=== PATIENT | female | born 1995 | race Caucasian/White ===

== ENCOUNTER → 2016-12-20 | Outpatient (CLI) | payer BC | LOC: M LAB 12:18 | PROVIDERS: ATTEND Specialist | DX: O20.0 Threatened abortion (principal); Z3A.00 Weeks of gestation of pregnancy not specified ==

== ENCOUNTER → 2016-12-22 | Outpatient (CLI) | payer BC | LOC: M LAB 12:08 | PROVIDERS: ATTEND Specialist | DX: O20.0 Threatened abortion (principal) ==

== ENCOUNTER → 2017-02-13 | Outpatient (CLI) | payer BC ==
[~2017-02-13] MED LIST: PREN200C PO
[2017-02-13 11:46] LABS: BASO % 0.4 % (0.0-1.0); EOS # 0.1 K/mm3 (0.0-0.50); EOS % 0.8 % (0.0-3.0); LARGE UNSTAINED CELL # 0.1 K/mm3 (0.0-0.4); LARGE UNSTAINED CELL % 1.6 % (0.0-4.0); LYMPH # 1.9 K/mm3 (1.5-6.5); LYMPH % 22.9 % (24.0-44.0); MEAN CORPUSCULAR HEMOGLOBIN 29.9 pg (27.0-33.0); MEAN CORPUSCULAR HGB CONC 33.9 g/dl (32.0-36.5); MEAN CORPUSCULAR VOLUME 88.2 fl (80.0-96.0); MONO # 0.4 K/mm3 (0.0-0.8); MONO % 4.9 % (0.0-5.0); NEUTROPHILS # 5.4 K/mm3 (1.8-7.7); NEUTROPHILS % 69.4 % (36.0-66.0); PLATELET COUNT, AUTOMATED 249 k/mm3 (150-450); RED CELL DISTRIBUTION WIDTH 12.7 % (11.5-14.5); WHITE BLOOD COUNT 7.8 K/mm3 (4.0-10.0)
[2017-02-13 12:52] LABS: HBsAg Prenatal NEGATIVE (NEGATIVE)
== END ==
LOC: M LAB 10:56
PROVIDERS: ATTEND Advanced Practice Midwife
DX: Z34.81 Encounter for supervision of other normal pregnancy, first trimester (principal)

== ENCOUNTER → 2017-02-17 | Outpatient (REF) | payer BC | LOC: M LAB REF 13:04 | PROVIDERS: ATTEND Advanced Practice Midwife | DX: Z34.81 Encounter for supervision of other normal pregnancy, first trimester (principal) ==

== ENCOUNTER 2017-04-22 22:13 | Emergency (ER) | payer BC, OTHER ==
[~2017-04-22] VITALS: Ht 170.2 cm; Wt 77.3 kg
[2017-04-22] MEDS ORDERED: PREN200C PO (22:26)
[2017-04-23 00:21] LABS: CONTROL LINE MONO INT CTR LINE PRESENT
[2017-04-23 00:25] VITALS: BP 110/78
== END 2017-04-23 00:30 | disposition home or self-care (01) ==
LOC: M ED 22:13
DX: O98.512 Other viral diseases complicating pregnancy, second trimester (principal); J02.9 Acute pharyngitis, unspecified; Z3A.17 17 weeks gestation of pregnancy; Z87.891 Personal history of nicotine dependence

== ENCOUNTER → 2017-05-04 | Outpatient (CLI) | payer OTHER ==
--- NOTE | 2017-05-05 08:19 | REP ---
Obstetric ultrasound for anatomy: There is a single intrauterine gestation in a breech presentation. There is motion and cardiac activity, the heart rate is 147 beats per minute. The placenta is posterior. There is no placenta previa or abruptio, the placenta is grade zero. Subjectively the amniotic fluid volume is normal. Cervix is 4.2 cm length. The maternal adnexa and cul-de-sac are unremarkable. By the ultrasound today the gestational age is 19 weeks 5 days with an MI of 09/23/2017. By LMP gestational age is 19 weeks 2 days. weight is 310 grams (0 pounds, 10 ounces). This is the 63rd percentile for 19 weeks 2 days. anatomic survey: The following structures are identified and are unremarkable. Intracranial lateral ventricles, cerebellum, cavum septum pellucidum, face, upper lip, cardiac right ventricular outflow tract, diaphragm, stomach, cord insertion, three-vessel cord, kidneys, bladder and upper lower extremities. Suboptimally demonstrated are the facial profile, lungs, four-chamber heart and left ventricular cardiac outflow tract and the spine. A followup study dedicated to these structures might be considered. There is a left choroid plexus cyst measuring 6 mm. The right choroid plexus is unremarkable. Signed by Damion Forrest MD 05/05/2017 08:06 A
== END ==
LOC: M RAD 16:57
PROVIDERS: ATTEND Specialist
DX: Z36 Encounter for antenatal screening of mother (principal)

== ENCOUNTER → 2017-06-01 | Outpatient (CLI) | payer OTHER ==
--- NOTE | 2017-06-02 05:05 | REP ---
Clinical: Anatomical evaluation. Comparison: 05/04/2017 . Findings: Examination demonstrates a single live intrauterine in breech presentation. motion is identified by technologist. Placenta is noted posteriorly and grade zero without evidence for placenta previa or abruption. Amniotic fluid volume is normal. Cervix measures 3.1 cm in length and appears closed. No evidence for nuchal cord. Gestational age by LMP 23 weeks 2 days with MI 09/26/2017 . Gestational age by current measurements 23 weeks 4 days with MI 09/24/2017 . FHR equals 144 beats per minute. Estimated weight 621 grams ( 57th percentile). Anatomical assessment demonstrates normal structures including cranium, choroid plexus, cavum, cerebellum/posterior fossa, facial features, lungs, four-chamber heart/ventricular outflow tracts, diaphragm, stomach, cord insertion/three-vessel cord, kidneys/bladder, and extremities. Continued limited evaluation of the lumbar spine noted. Impression: Single live intrauterine in breech presentation demonstrating appropriate interval growth. In conjunction with prior examination anatomical assessment is nearly complete and normal. Limited evaluation of the lumbar spine is again noted due to positioning. Signed by Natan Jones MD 06/02/2017 04:57 A
== END ==
LOC: M SMT 10:26
PROVIDERS: ATTEND Advanced Practice Midwife
DX: Z34.82 Encounter for supervision of other normal pregnancy, second trimester (principal); Z3A.23 23 weeks gestation of pregnancy

== ENCOUNTER → 2017-06-28 | Outpatient (CLI) | payer OTHER ==
[2017-06-28 13:11] LABS: MEAN CORPUSCULAR HEMOGLOBIN 29.3 pg (27.0-33.0); MEAN CORPUSCULAR HGB CONC 32.9 g/dl (32.0-36.5); PLATELET COUNT, AUTOMATED 239 10^3/uL (150-450); RED CELL DISTRIBUTION WIDTH 13.6 % (11.5-14.5); WHITE BLOOD COUNT 13.3 10^3/uL (4.0-10.0)
--- NOTE | 2017-06-28 13:17 | REP ---
Clinical: Anatomical re-evaluation. Comparison: 06/01/2017 . Findings: Examination demonstrates a single live intrauterine in cephalic presentation. motion is identified by technologist. Placenta is noted posteriorly and grade one without evidence for placenta previa or abruption. Amniotic fluid volume is normal. Cervix measures 4.1 cm in length and appears closed. No evidence for nuchal cord. Gestational age by LMP 27 weeks 1 day with MI 09/26/2017 . Gestational age by current measurements 27 weeks 3 days with MI 09/24/2017 . FHR equals 153 beats per minute. Estimated weight 1066 grams ( 49th percentile). Anatomical assessment demonstrates normal structures including cranium, choroid plexus, cavum, cerebellum/posterior fossa, facial features, lungs, four-chamber heart/ventricular outflow tracts, diaphragm, stomach, cord insertion/three-vessel cord, kidneys/bladder, spine, and extremities. Impression: Single live intrauterine in cephalic presentation demonstrating appropriate interval growth. In conjunction with prior examination anatomical assessment is complete and normal. No gross abnormalities are identified. Signed by Natan Jones MD 06/28/2017 11:17 A
== END ==
LOC: M SMT 10:01
PROVIDERS: ATTEND Obstetrics & Gynecology
DX: Z34.82 Encounter for supervision of other normal pregnancy, second trimester (principal)

== ENCOUNTER → 2017-08-29 | Outpatient (REF) | payer OTHER | LOC: M LAB REF 17:24 | DX: Z34.83 Encounter for supervision of other normal pregnancy, third trimester (principal) ==

== ENCOUNTER 2017-09-19 18:45 | Inpatient (IN) | payer OTHER ==
[2017-09-19] MEDS: miSOPROStol 50 MCG 1/2 TAB (S0191) SL (21:09)
[2017-09-19 21:16] LABS: HEMATOCRIT 38.6 % (36.0-47.0); HEMOGLOBIN 13.2 g/dl (12.0-16.0); MEAN CORPUSCULAR HEMOGLOBIN 29.9 pg (27.0-33.0); MEAN CORPUSCULAR HGB CONC 34.2 g/dl (32.0-36.5); MEAN CORPUSCULAR VOLUME 87.3 fl (80.0-96.0); PLATELET COUNT, AUTOMATED 214 10^3/uL (150-450); RED BLOOD COUNT 4.42 10^6/uL (4.00-5.40); RED CELL DISTRIBUTION WIDTH 14.6 % (11.5-14.5)
[2017-09-19 21:34] LABS: AMPHETAMINES URINE REFLEX NEGATIVE (NEGATIVE); BARBITURATES URINE REFLEX NEGATIVE (NEGATIVE); BENZODIAZEPINES URINE REFLEX NEGATIVE (NEGATIVE); CANNABINOIDS URINE REFLEX NEGATIVE (NEGATIVE); COCAINE METABOLITE URINE REFLE NEGATIVE (NEGATIVE); METHADONE URINE REFLEX NEGATIVE (NEGATIVE); OPIATES URINE REFLEX NEGATIVE (NEGATIVE); PHENCYCLIDINE URINE REFLEX NEGATIVE (NEGATIVE)
[2017-09-19 21:37] LABS: ALT/SGPT 18 U/L (12-78); AST/SGOT 31 U/L (7-37); BILIRUBIN,TOTAL 0.3 MG/DL (0.2-1.0); CREATININE FOR GFR 0.59 MG/DL (0.55-1.30); GLOMERULAR FILTRATION RATE > 60.0 (>60); LDH LACTATE DEHYDROGENASE 304 U/L (84-246); URIC ACID 5.6 MG/DL (2.6-6.0)
[2017-09-20] MEDS: miSOPROStol 50 MCG 1/2 TAB (S0191) SL ×3 (00:45→11:48)
[2017-09-20] MEDS: PROMETHAZINE INJ 25 MG/ML VIAL (J2550) IV (10:18)
[2017-09-20] MEDS: BUTORPHANOL 2 MG/ML INJ (J0595) IV (10:19)
[2017-09-20] MEDS ORDERED: FENTANYL 2MCG/ML ROPIVACAINE 0.2% IN 0.9% NACL 200ML IVBAG As Ordered (17:29)
[2017-09-20] MEDS ORDERED: EPIDURAL COMMENT XX (19:30)
[2017-09-20] MEDS ORDERED: EPIDURAL/PCA KEYS XX (19:30)
[2017-09-20] MEDS ORDERED: REFRIGERATOR IV KEYS XX (19:30)
[2017-09-20] MEDS ORDERED: LACTATED RINGER'S 1000 ML IV (19:30)
[2017-09-20] MEDS ORDERED: ONDANSETRON 4MG/2ML VIAL (J2405) IV ×2 (19:30→20:45)
[2017-09-20] MEDS ORDERED: diphenhydrAMINE INJ 50MG/ML VIAL (J1200) IV (19:30)
[2017-09-20] MEDS ORDERED: FENTANYL/ROPIVACAINE/NACL BAG 200 ML EPIDURAL (19:30)
[2017-09-20] MEDS ORDERED: ePHEDrine INJ 50 MG/ML VIAL IV (19:30)
[2017-09-20] MEDS ORDERED: NALOXONE INJ 0.4 MG/1 ML VIAL (J2310) IV (19:30)
[2017-09-20] MEDS ORDERED: OXYTOCIN 30 UNITS IN 0.9% NaCl 500ML IV BAG (J2590) As Ordered (19:31)
[2017-09-20] MEDS ORDERED: LR 1,000 ML IV (20:39)
[2017-09-20] MEDS: OXYTOCIN DRIP 30 UNITS in APPROPRIATE DILUENT 1 EA IV (20:39)
[2017-09-20] MEDS ORDERED: MEASLES,MUMPS,RUBELLA VACCINE INJ (MMR-II) (90707) SC (20:45)
[2017-09-20] MEDS ORDERED: PROMETHAZINE 25 MG TAB PO (20:45)
[2017-09-20] MEDS ORDERED: DOCUSATE SODIUM 100 MG CAP PO (20:45)
[2017-09-20] MEDS ORDERED: RHOGAM 300 MCG (1500 IU) INJ (J2790) IM (20:45)
[2017-09-20] MEDS: IBUPROFEN 800 MG TAB PO (22:04)
[2017-09-21] MEDS: ACETAMINOPHEN 500 MG TAB PO ×3 (04:31→20:51)
[2017-09-21] MEDS: DIBUCAINE 1% OINTMENT 30GM TOP (04:32)
[2017-09-21] MEDS: PRENATAL VITAMINS CHEWABLE TABLET PO (08:16)
[2017-09-21] MEDS: IBUPROFEN 800 MG TAB PO ×2 (08:17→18:01)
[2017-09-21] MEDS: ADACEL/BOOSTRIX VACCINE (DIPHTH/PERTUSS/ACELL/TETANUS)0.5ML SYR (90715) IM (13:05)
[2017-09-22] MEDS: PRENATAL VITAMINS CHEWABLE TABLET PO (07:54)
== END 2017-09-22 14:24 | disposition home or self-care (01) | DRG 775 ==
LOC: M LDO 18:45 → M OBS 09-20 22:41 → M LDI 20:26
PROC: 10E0XZZ Delivery of Products of Conception, External Approach (ICD-10-PCS; principal; 2017-09-20)
PROC: 0HQ9XZZ Repair Perineum Skin, External Approach (ICD-10-PCS; 2017-09-20)
DX: O42.02 Full-term premature rupture of membranes, onset of labor within 24 hours of rupture (principal); O41.03X0 Oligohydramnios, third trimester, not applicable or unspecified; Z3A.39 39 weeks gestation of pregnancy; O32.6XX0 Maternal care for compound presentation, not applicable or unspecified; O70.0 First degree perineal laceration during delivery; Z37.0 Single live birth